=== PATIENT | male | born 1990 | race Caucasian/White ===

== ENCOUNTER 2024-08-07 18:17 | Inpatient (IN) | payer OTHER ==
[~2024-08-07] VITALS: Ht 188 cm; Wt 81.8 kg
[2024-08-07] MEDS ORDERED: Haloperidol 5 MG Tab PO PRN ×2 (19:35→19:40)
[2024-08-07] MEDS ORDERED: FLU VACC TS2024-25(6MOS UP)/PF 45 MCG/0.5 ML SYRINGE IM SCH (19:35)
[2024-08-07] MEDS ORDERED: Mirtazapine 15 MG Tab PO PRN (19:40)
[2024-08-07] MEDS ORDERED: LORazepam 2 MG Tab PO PRN ×2 (19:40)
[2024-08-07] MEDS ORDERED: Ibuprofen 600 MG Tab PO PRN (19:40)
--- NOTE | 2024-08-08 17:07 | NUR ---
SHIFT SUMMARY PT A/O X4; PLEASANT AND COOPERATIVE WITH CARE. DENIES SI, HI, OR ANY HALLUCINATIONS. PT WAS ADMITTED FROM [facility] AFTER HE WAS BROUGHT IN BY POLICE. HE IS A MISSING PERSON FROM [place] AND WAS FOUND NAKED IN [place]. IT IS UNCLEAR WHAT THE PT WAS DOING IN THE LITTLE OR HOW HE BECAME LOST, BUT HE STATES THAT HE RAN OUT OF GAS. HE DENIES ANY MEDICAL OR PSYCHIATRIC HISTORY. HE LIVES IN [place] WITH HIS PARENTS AND IS CURRENTLY ON A HOLD. THE HOLD EXPIRES ON 08/11/24. HE IS COVERED IN SCRATCHES FROM BEING OUTSIDE AND 2 BANDAIDS APPLIED TO R DHALIWAL ABRASION. PT DENIES ANY NEEDS AT THIS TIME.
[2024-08-08 20:48] VITALS: BP 117/74
--- NOTE | 2024-08-09 04:21 | NUR ---
PATIENT WAS IN BED SLEEPING AT THE BEGINNING OF THE SHIFT. HE GOT UP SHORTLY AFTER AND JOINED STAFF AND PEERS IN GROUP ROOM, WATCHING THE TELEVISION. HE DECLINED ANY EVENING MEDICATIONS (HIS ARE PRN) AND STATED, "I CAN SLEEP FINE WITHOUT THEM". HE STAYED UP A BIT IN THE HALLWAY, TALKING WITH STAFF, THEN WENT TO HIS ROOM, WHERE HE WAS NOTED TO BE IN BED RESTING WITH EYES CLOSED AND RESPIRATIONS CONFIRMED. HE HAD NO S/SX SUICIDAL IDEATION THIS SHIFT.
[2024-08-09 08:10] VITALS: BP 118/72
--- NOTE | 2024-08-09 17:37 | NUR ---
SHIFT SUMMARY PT A/O X4; PLEASANT AND COOPERATIVE WITH CARE. DENIES SI, HI, OR ANY HALLUCINATIONS. SPEECH CAN BE TANGENTIAL AT TIMES, BUT PT SEEMS TO BE IN GOOD SPIRITS. PT AGREEABLE TO BEGIN YOGI THIS EVENING. HE HAS PARTICIPATED IN ALL GROUPS, MEALS, AND IS INTERACTING WITH PEERS.
[2024-08-09] MEDS ORDERED: Ziprasidone HCL 20 MG Cap PO SCH (21:00)
--- NOTE | 2024-08-10 04:50 | NUR ---
PATIENT WAS AWAKE AT THE BEGINNING OF THE SHIFT. HE TALKED WITH STAFF AND PEERS. HE WAS PLEASANT AND COOPERATIVE WITH CARES. HE DECLINED EVENING MEDICATIONS, STATING HIS UNDERSTANDING THAT HE AND THE DOCTOR DECIDED HE DIDN'T HAVE TO TAKE HIS MEDICATION UNTIL HE IS DISCHARGED. HE WAS ENCOURAGED TO REVISIT THAT WITH HIS DOCTOR IN THE MORNING. HE STAYED UP AND WATCHED TELEVISION WITH STAFF AND PEERS, THEN WENT TO BED, WHERE HE WAS NOTED TO BE RESTING QUIETLY WITH EYES CLOSED AND RESPIRATIONS CONFIRMED. HE HAD NO S/SX OF SUICIDAL IDEATION THIS SHIFT.
--- NOTE | 2024-08-10 07:43 | NUR ---
MED REFUSAL PT CONTINUES TO REFUSE MEDS. HE REPORTS THAT HE WILL NOT BE TAKING MEDS WHILE ADMITTED HERE IN [facility] AND WILL DISCUSS MEDS WITH HIS PSYCHIATRIST AFTER DISCHARGE. PT OFFERED RYANNDON EDUCATION PAPER THAT HE REPORTS HE HAS ALREADY READ AND HAS HAD SEVERAL STAFF TALK TO HIM ABOUT THE MED
[2024-08-10 08:13] VITALS: BP 125/64
--- NOTE | 2024-08-10 08:25 | NUR ---
AM ASSESSMENT PT DENIES SI CURRENTLY. WHEN ASKED ABOUT THOUGHTS OF SELF HARM, AH/VH PT DENIES SI OR AH/VH AND BECOMES SERIOUS AND STATES THAT WE NEED TO KEEP THIS PROFESSIONAL. PT STATES THAT QUESTIONS NEEDS TO STAY SERIOUS AND PROFESSIONAL.
--- NOTE | 2024-08-10 15:28 | NUR ---
[facility] [address] [place] [address] FAX [phone]
--- NOTE | 2024-08-10 17:00 | NUR ---
SHIFT SUMMARY PT PLEASANT AND OVERLY FRIENDLY. PACING HALLWAY TODAY WEARING HEADPHONES. MINIMAL PARTICIPATION IN GROUPS ALTHOUGH ACTIVE WITH MILEU AND PEERS. WHEN VISITED W/ PROVIDER, PT PROVIDES SHORT ANSWERS AND DENIES HANDSHAKE. PT CONTINUES TO REFUSE MEDICATIONS AND PER MOM, MEDICATION STABILIZATION IS A MUST TO RETURN HOME. PT AGEEABLE TO MEDICATIONS AFTER SPEAKING WITH MOM AND INFORMED THAT TO RETURN HOME HE MUST BE ON MEDICATIONS. NO OTHER CONCERNS THIS SHIFT, PT REPORTS MUCH BETTER DAY.
[2024-08-10 20:25] VITALS: BP 121/63
--- NOTE | 2024-08-11 03:36 | NUR ---
SINA TJ ISOLATIVE TO ROOM THIS SHIFT, MAINLY RESTING IN BED. PT DID COME OUT OF ROOM TO MAKE PHONE CALL. PT REPORTED HAVING A GOOD DAY. PT DENIED SI/HI/AVTH AND PAIN. NO PRNS GIVEN THIS SHIFT. PT VOICED NO OTHER CONCERNS THIS SHIFT. SLEPT ALL NIGHT WITHOUT INCIDENT. SAFETY MEASURES MAINTAINED VIA Q15 MIN CHECKS.
--- NOTE | 2024-08-11 03:37 | NUR ---
WILMA VISIBLE ON UNIT AT START OF SHIFT SITTING IN DAY ROOM WITH PEERS AND STAFF ENJOYING A MOVIE. A&O X4. CALM, AND COOPERATIVE WITH STAFF AND CARE. TOOK HS MEDICATION WITHOUT ISSUE. DENIED SI/HI/AVTH AND PAIN. PT REPORTED MOOD GOOD. PT RETIRED TO ROOM AND SLEPT AWAKENING X 1 WITH COMPLAINTS OF BL LEG PAIN. PT GIVEN ADVIL ORDERED (SEE EMAR) AND PROVIDED POWERADE. SAFETY MEASURES MAINTAINED VIA Q15 MIN CHECKS.
[2024-08-11 08:21] VITALS: BP 130/74
--- NOTE | 2024-08-11 12:15 | NUR ---
F/U COUNSELING APPT FRIDAY 08/17 @2:30 [facility] [address] [facility] [address]
[2024-08-11] MEDS ORDERED: ZIPR20 PO ×2 (12:20)
--- NOTE | 2024-08-11 12:44 | NUR ---
Pt is calm, cooperative, eye contact is good. Pt's mood and affect are euthymic. He denies SI, HI, AVH, and current pain. Pt reported feeling a "little foggy" RT new order for ziprasidone, but race and sports book writer explained that this is a normal occurance when a person starts a new psychotropic medication. Pt is excited to d/c today. d/c package has been prepared, Rx faxed to pt's preferred pharmacy, and f/u care arranged for. Pt is engaged in milieu activity while awating his ride and d/c.
--- NOTE | 2024-08-11 15:13 | NUR ---
D/C Note Pt was given his discharge instructions, follow-up appointment information, pt education. Pt was allowed to change into street clothes and escorted off the unit at approximately 1512. At time of d/c, pt was A&O, calm, euthymic in mood and affect. He denies any SI, HI, or AVH.
== END 2024-08-11 15:12 | disposition home or self-care (01) | DRG 885 ==
LOC: BHU 18:17
PROVIDERS: ADMIT Psychiatry & Neurology Psychiatry
DX: F29 Unspecified psychosis not due to a substance or known physiological condition (principal)
CPT/HCPCS: A9270